=== PATIENT | female | born 1985 | race African-American/Black ===

== ENCOUNTER 2018-07-09 08:25 | Outpatient (CLI) | payer OTHER, MEDICAID ==
--- NOTE | 2018-07-09 10:19 | ULT ---
PELVIC ULTRASOUND: 07/09/2018 HISTORY: Evaluate size and dates. A 33-year-old female. COMPARISON: None. TECHNIQUE: Multiplanar clement-scale sonographic imaging of the pelvis obtained with transabdominal imaging. The o varies are assessed with color-flow and spectral analysis. FINDINGS: The right ovary could not be visualized on this exam. The left ovary measures 3.8 x 2.2 cm and demon strates normal blood flow without evidence for mass. The uterus measures 14.1 x 7.4 x 6.6 cm and contains an intrauterine gestational sac. Within the ges tational sac is a pole. No evidence for subchorionic hemorrhage. heart rate is 170 beat s per minute. BIOMETRY: [place]-rump length: 4.0 cm (11 weeks 0 days). Mean sac diameter: 6.4 cm (10 weeks 3 days). Average age based on ultrasound is 10 weeks 5 days. IMPRESSION: Intrauterine gestation with heart rate of 170 beats per minute and age based on ultrasound of 1 0 weeks 5 days. POS: MINOO
== END 2018-07-09 08:26 | disposition home or self-care (01) ==
LOC: BICULT 08:25
PROVIDERS: ATTEND Nurse Practitioner
DX: O09.91 Supervision of high risk pregnancy, unspecified, first trimester (principal); Z87.51 Personal history of pre-term labor; Z3A.10 10 weeks gestation of pregnancy
CPT/HCPCS: 76856; 93976